=== PATIENT | male | born 1980 | race African-American/Black ===

== ENCOUNTER 2020-08-04 06:10 | Emergency (ER) | payer OTHER ==
[~2020-08-04] VITALS: Ht 182.9 cm; Wt 76.0 kg
[2020-08-04] MEDS ORDERED: KETOROLAC 30MG/ML VIAL IV STA (06:46)
[2020-08-04 07:09] VITALS: BP 171/109
[2020-08-04 08:44] LABS: BASOPHILS % 0.4 % (0.0-2.0); EOSINOPHILS % 3.1 % (0.0-5.0); HEMATOCRIT. 44.1 % (42.0-52.0); HEMOGLOBIN. 14.2 g/dL (14.0-18.0); LYMPHOCYTES % 21.3 % (20.0-50.0); MEAN CORPUSCULAR HEMOGLOBIN 26.2 pg (28.0-32.0); MEAN CORPUSCULAR VOLUME 81.3 fL (80.0-94.0); MEAN PLATELET VOLUME 9.3 fl (7.4-10.4); MONOCYTES % 11.2 % (2.0-8.0); PLATELET 246 x1000/uL (130-400); RED BLOOD CELL COUNT 5.42 mill/uL (4.7-6.1); RED CELL DISTRIBUTION WIDTH 15.9 % (11.6-14.6)
[2020-08-04 08:49] LABS: CHLORIDE 105 mEq/L (98-107)
== END 2020-08-04 09:48 | disposition home or self-care (01) ==
LOC: ER 06:10
DX: R07.89 Other chest pain (principal); I10 Essential (primary) hypertension; J45.909 Unspecified asthma, uncomplicated; G40.909 Epilepsy, unspecified, not intractable, without status epilepticus; F99 Mental disorder, not otherwise specified
CPT/HCPCS: 36415; 71045; 80053; 83880; 84484; 85025; 93005; 96374; 99285; J1885

== ENCOUNTER 2021-02-19 09:48 | Emergency (ER) | payer MEDICAID, OTHER ==
[~2021-02-19] VITALS: Ht 182.9 cm; Wt 85.0 kg
[2021-02-19 10:10] VITALS: BP 166/88
[2021-02-19] MEDS ORDERED: GABA300C MT (12:28)
[2021-02-19] MEDS ORDERED: IBUP-2029 MT (12:29)
== END 2021-02-19 12:38 | disposition home or self-care (01) ==
LOC: ER 09:48
DX: G62.9 Polyneuropathy, unspecified (principal); S90.32XA Contusion of left foot, initial encounter; S90.31XA Contusion of right foot, initial encounter; J45.909 Unspecified asthma, uncomplicated; I10 Essential (primary) hypertension; R56.9 Unspecified convulsions; X58.XXXA Exposure to other specified factors, initial encounter; Y93.9 Activity, unspecified; Y92.9 Unspecified place or not applicable
CPT/HCPCS: 70110; 82962; 99283

== ENCOUNTER 2024-05-25 18:51 | Emergency (ER) | payer MEDICAID ==
[~2024-05-25] VITALS: Ht 177.8 cm; Wt 106.0 kg
[~2024-05-25 18:51] MED LIST: GABA300C MT; IBUP-2029 MT
[2024-05-25 19:28] VITALS: BP 161/97; PULSE 98; RESP 16; TEMP 98.4; O2SAT 98
[2024-05-25] MEDS ORDERED: CLOT15CR27 TP (20:01)
[2024-05-25] MEDS ORDERED: IBUP-2029 MT (20:01)
[2024-05-25] MEDS ORDERED: GABA300C MT (20:01)
== END 2024-05-25 20:18 | disposition home or self-care (01) ==
LOC: ER 18:51
DX: M79.671 Pain in right foot (principal); M79.672 Pain in left foot; J45.909 Unspecified asthma, uncomplicated; I10 Essential (primary) hypertension
CPT/HCPCS: 99283

== ENCOUNTER 2025-03-10 11:34 | Emergency (ER) | payer MEDICAID ==
[~2025-03-10] VITALS: Ht 177.8 cm; Wt 88.0 kg
[~2025-03-10 11:34] MED LIST changes: +CLOT15CR27 TP
[2025-03-10 11:40] VITALS: TEMP 37.2; O2SAT 100
[2025-03-10 11:55] VITALS: O2SAT 98
[2025-03-10 13:04] VITALS: BP 161/106; PULSE 83; RESP 20
[2025-03-10] MEDS: KETOROLAC 30MG/ML VIAL IM ONE (13:04)
[2025-03-10] MEDS ORDERED: LIDO-53 TP (13:15)
[2025-03-10] MEDS ORDERED: ACET-2708 MT (13:15)
== END 2025-03-10 13:28 | disposition home or self-care (01) ==
LOC: ER 11:42
DX: R07.81 Pleurodynia (principal); I10 Essential (primary) hypertension; J45.909 Unspecified asthma, uncomplicated; F10.90 Alcohol use, unspecified, uncomplicated; Y90.9 Presence of alcohol in blood, level not specified
CPT/HCPCS: 71045; 73610; 96372; 99284; J1885; Z7610